=== PATIENT | male | born 1985 | race Caucasian/White ===

== ENCOUNTER 2017-11-24 16:24 | Emergency (ER) | payer OTHER ==
[~2017-11-24] VITALS: Ht 182.9 cm; Wt 86.2 kg
[~2017-11-24 16:24] MED LIST: Bactrim Ds Tab1 EACH PO; CRUTCH3 USE; CYCL10 PO; HYDACE10B PO; HYDACE5 PO; IBUP600 PO; MULVITA PO; NAPR500 PO; OXYACE5T PO; PENVK500 PO; PROM25 PO; RXCYCL10 PO; TRAM50 PO; Zofran Odt4 MG SL
[2017-11-24] MEDS ORDERED: Flagyl500 MG PO (16:37)
== END 2017-11-24 16:54 | disposition home or self-care (01) ==
LOC: ER 16:24
DX: Z20.2 Contact with and (suspected) exposure to infections with a predominantly sexual mode of transmission (principal); F17.200 Nicotine dependence, unspecified, uncomplicated
CPT/HCPCS: 99282

== ENCOUNTER 2018-07-01 16:11 | Emergency (ER) | payer OTHER ==
[~2018-07-01] VITALS: Ht 182.9 cm; Wt 81.7 kg
[~2018-07-01 16:11] MED LIST changes: +Flagyl500 MG PO
[2018-07-01] MEDS ORDERED: IBUP800 PO (18:05)
== END 2018-07-01 18:28 | disposition home or self-care (01) ==
LOC: ER 16:11
DX: M79.641 Pain in right hand (principal); F17.210 Nicotine dependence, cigarettes, uncomplicated
CPT/HCPCS: 29125; 73130; 99283-25

== ENCOUNTER → 2018-08-11 | Outpatient (CLI) | payer OTHER ==
[~2018-08-11] MED LIST changes: +IBUP800 PO
== END ==
LOC: LAB SRC 12:51 → LAB SHORT 12:51
DX: A49.02 Methicillin resistant Staphylococcus aureus infection, unspecified site (principal); L03.90 Cellulitis, unspecified
CPT/HCPCS: 87081

== ENCOUNTER 2019-04-14 08:19 | Emergency (ER) | payer OTHER ==
[~2019-04-14] VITALS: Ht 182.9 cm; Wt 77.1 kg
[2019-04-14 08:56] LABS: Source, Urine Clean Catch
[2019-04-14 09:00] LABS: Appearance, Urine Clear (Clear); Bilirubin, Urine Neg (Neg); Blood, Urine 1+ (Neg); Color, Urine Yellow (P-Yellow); Glucose Qualitative, Urine Neg (Neg); Ketones, Urine Neg (Neg); Leukocyte Esterase, Urine 2+ (Neg); Nitrite, Urine Neg (Neg); Protein, Urine Neg (Neg); Specific Gravity, Urine 1.025 (1.003-1.022); Urobilinogen, Urine NORM (Normal)
[2019-04-14 09:14] LABS: Red Blood Cells, Urine 0-2 /hpf (0-2)
[2019-04-14 09:15] LABS: Bacteria Few /hpf; Squamous Epithelial Cells Not Seen /hpf (Few)
[2019-04-14] MEDS ORDERED: IBUP800 PO (09:28)
[2019-04-14] MEDS ORDERED: CYCL10 PO (09:28)
== END 2019-04-14 09:36 | disposition home or self-care (01) ==
LOC: ER 08:19
PROVIDERS: Physician Assistant
DX: M54.5 Low back pain (principal); R22.0 Localized swelling, mass and lump, head; F17.200 Nicotine dependence, unspecified, uncomplicated
CPT/HCPCS: 81001; 87086; 99283

== ENCOUNTER 2019-06-10 15:04 | Emergency (ER) | payer OTHER ==
[~2019-06-10] VITALS: Ht 182.9 cm; Wt 81.7 kg
== END 2019-06-10 15:49 | disposition home or self-care (01) ==
LOC: ER 15:04
DX: L72.0 Epidermal cyst (principal); F17.210 Nicotine dependence, cigarettes, uncomplicated
CPT/HCPCS: 99282